=== PATIENT | female | born 1970 | race Two or more races ===

== ENCOUNTER 2018-02-09 09:09 | Emergency (ER) | payer OTHER ==
[~2018-02-09] VITALS: Ht 167.6 cm; Wt 72.1 kg
== END 2018-02-09 12:48 | disposition home or self-care (01) ==
LOC: ER 09:09
DX: M54.5 Low back pain (principal)

== ENCOUNTER 2018-10-18 20:47 | Emergency (ER) | payer OTHER ==
[~2018-10-18] VITALS: Ht 167.6 cm; Wt 74.8 kg
== END 2018-10-19 04:00 | disposition home or self-care (01) ==
LOC: ER 20:47
DX: K52.9 Noninfective gastroenteritis and colitis, unspecified (principal)

== ENCOUNTER 2019-05-09 09:25 | Day surgery (SDC) | payer OTHER | END 2019-05-09 13:40 | disposition home or self-care (01) | LOC: AMB-ENDOS 09:25 → ADM 14:45 | DX: K62.89 Other specified diseases of anus and rectum (principal); K57.30 Diverticulosis of large intestine without perforation or abscess without bleeding; Z12.11 Encounter for screening for malignant neoplasm of colon ==